=== PATIENT | male | born 1985 | race Asian ===

== ENCOUNTER 2016-12-17 18:11 | Emergency (ER) | payer OTHER ==
[2016-12-17 19:38] VITALS: BP 99/54
[2016-12-17] MEDS ORDERED: Amoxicillin/Clavulanate TAB* 875 MG PO ONE (20:25)
--- NOTE | 2016-12-17 20:27 | UC ---
Ear Complaint HPI - HPI Summary HPI Summary: Patient has had URI symptoms developed fever sore throat over the past two day. - History of Current Complaint Chief Complaint: UCRespiratory Stated Complaint: FEVER, AND SORE THROAT Time Seen by Provider: 12/17/16 20:05 Hx Obtained From: Patient Onset/Duration: Sudden Onset, Lasting Days Severity Initially: Moderate Severity Currently: Severe Associated Signs/Symptoms: Positive: URI Symptoms - Allergies/Home Medications Allergies/Adverse Reactions: Allergies Allergy/AdvReac Type Severity Reaction Status Date / Time No Known Allergies Allergy Verified 12/17/16 19:38 Home Medications: Home Medications Acetaminophen [Eq Pain Reliever] 650 mg PO 12/17/16 [History] Ibuprofen [Advil] 400 mg PO 12/17/16 [History] PMH/Surg Hx/FS Hx/Imm Hx Previously Healthy: Yes Endocrine History Of: Denies: Diabetes, Thyroid Disease Cardiovascular History Of: Denies: Cardiac Disorders, Hypertension Respiratory History Of: Denies: COPD, Asthma GI/ History Of: Denies: Ulcer - Surgical History Surgical History: Yes Surgery Procedure, Year, and Place: RT LEG 2004 - Family History Known Family History: Positive: Hypertension - Social History Alcohol Use: None Substance Use Type: None Smoking Status (MU): Never Smoked Tobacco Review of Systems Constitutional: Fever, Fatigue Skin: Negative Eyes: Negative ENT: Sore Throat, Ear Ache Respiratory: Cough Cardiovascular: Negative Gastrointestinal: Negative Genitourinary: Negative Motor: Negative Neurovascular: Negative Musculoskeletal: Negative Neurological: Headache Psychological: Negative All Other Systems Reviewed And Are Negative: Yes Physical Exam Triage Information Reviewed: Yes Appearance: Well-Nourished, Ill-Appearing, Pain Distress Vital Signs: Initial Vital Signs Temp 96.9 F 12/17/16 19:35 Pulse 97 12/17/16 19:35 Resp 18 12/17/16 19:35 BP 99/54 12/17/16 19:35 Pulse Ox 98 12/17/16 19:35 Vital Signs Reviewed: Yes Eye Exam: Normal Eyes: Positive: Conjunctiva Clear ENT: Positive: Pharyngeal erythema, TM bulging, TM dull, TM red Dental Exam: Normal Neck exam: Normal Neck: Positive: Supple, Nontender, Enlarged Nodes @ - behind right ear Respiratory Exam: Normal Respiratory: Positive: Chest non-tender, No respiratory distress, No accessory muscle use, Decreased breath sounds, Wheezing, Inspiration Cardiovascular Exam: Normal Cardiovascular: Positive: RRR, No Murmur, Pulses Normal Abdominal Exam: Normal Abdomen Description: Positive: Nontender, No Organomegaly, Soft Bowel Sounds: Positive: Present Musculoskeletal Exam: Normal Musculoskeletal: Positive: Strength Intact, ROM Intact, No Edema Neurological Exam: Normal Neurological: Positive: Alert, Muscle Tone Normal Psychological Exam: Normal Skin Exam: Normal Ear Complaint Course/Dx - Course Course Of Treatment: hx obtained, exam performed, meds reviewed, right otitis media, pharyngitis, HURST and fever present. - Differential Dx/Diagnosis Differential Diagnosis/HQI/PQRI: Cellulitis, Cerumen Impaction, Otitis Externa, Otitis Media, Pharyngitis, Trauma Provider Diagnoses: Right otitis media. pharyngitis Discharge - Discharge Plan Condition: Stable Disposition: HOME Patient Education Materials: Otitis Media (ED) Forms: *Work Release Additional Instructions: take the medication as prescribed, Increase fluid intake and get plenty of rest. Ibuprofen and tylenol for pain and fever.
== END 2016-12-17 20:42 | disposition home or self-care (01) ==
LOC: UCEAST 18:11
DX: H66.91 Otitis media, unspecified, right ear (principal); J02.9 Acute pharyngitis, unspecified
CPT/HCPCS: 99212; A9270-GY; G0463